=== PATIENT | male | born 1960 | race Caucasian/White ===

== ENCOUNTER 2018-05-13 09:21 | Day surgery (SDC) | payer MEDICARE ==
[2018-05-13] MEDS: NS 1,000 ML IV (10:14)
[2018-05-13] MEDS ORDERED: PROPOFOL 200 MG/20 ML VIAL As Ordered ×2 (11:10)
[2018-05-13] MEDS ORDERED: LIDOCAINE 2% INJ 100 MG/5 ML SDV (FOR ANES.) As Ordered (11:10)
== END 2018-05-13 11:52 | disposition home or self-care (01) ==
LOC: M OPP 09:21
DX: Z12.11 Encounter for screening for malignant neoplasm of colon (principal); Z83.71 Family history of colonic polyps; K57.30 Diverticulosis of large intestine without perforation or abscess without bleeding; I10 Essential (primary) hypertension; I25.10 Atherosclerotic heart disease of native coronary artery without angina pectoris; E11.9 Type 2 diabetes mellitus without complications; K21.9 Gastro-esophageal reflux disease without esophagitis; M54.9 Dorsalgia, unspecified; G47.30 Sleep apnea, unspecified; E66.9 Obesity, unspecified; Z87.891 Personal history of nicotine dependence; Z79.82 Long term (current) use of aspirin; Z79.84 Long term (current) use of oral hypoglycemic drugs; Z79.899 Other long term (current) drug therapy
CPT/HCPCS: G0105

== ENCOUNTER → 2019-03-23 | Outpatient (CLI) | payer MEDICARE, OTHER ==
[~2019-03-23] MED LIST: ASPI81TA26 PO; IBUP-359; LANS30CA; LOSA50TA88; METF500T4
[2019-03-23 10:51] LABS: BASO % 0.7 % (0.0-1.0); EOS # 0.1 10^3/uL (0.0-0.50); HEMATOCRIT 46.3 % (42.0-52.0); HEMOGLOBIN 15.3 g/dl (13.5-17.5); LYMPH % 43.4 % (24.0-44.0); MEAN CORPUSCULAR HEMOGLOBIN 29.1 pg (27.0-33.0); MONO # 0.4 10^3/uL (0.0-0.8); MONO % 8.3 % (0.0-5.0); NEUTROPHILS # 2.1 10^3/uL (1.8-7.7); NEUTROPHILS % 45.4 % (36.0-66.0); PLATELET COUNT, AUTOMATED 161 10^3/uL (150-450); RED BLOOD COUNT 5.26 10^6/uL (4.30-6.10); WHITE BLOOD COUNT 4.6 10^3/uL (4.0-10.0)
[2019-03-23 11:14] LABS: BLOOD UREA NITROGEN 14 MG/DL (7-18); CALCIUM LEVEL 8.9 MG/DL (8.8-10.2); CARBON DIOXIDE LEVEL 28 MEQ/L (21-32); CHLORIDE LEVEL 104 MEQ/L (98-107); CREATININE FOR GFR 1.18 MG/DL (0.70-1.30); GLOMERULAR FILTRATION RATE > 60.0 (>49); GLUCOSE, FASTING 129 MG/DL (70-100); POTASSIUM SERUM 4.1 MEQ/L (3.5-5.1); SODIUM LEVEL 138 MEQ/L (136-145)
== END ==
LOC: M LAB 09:56
PROVIDERS: ATTEND Family Medicine
DX: I11.9 Hypertensive heart disease without heart failure (principal); E11.9 Type 2 diabetes mellitus without complications; N20.0 Calculus of kidney; G47.33 Obstructive sleep apnea (adult) (pediatric); K21.0 Gastro-esophageal reflux disease with esophagitis

== ENCOUNTER → 2019-03-23 | Outpatient (CLI) | payer MEDICARE, OTHER ==
[2019-03-23 10:51] LABS: HEMATOCRIT 46.1 % (42.0-52.0); HEMOGLOBIN 15.2 g/dl (13.5-17.5); MEAN CORPUSCULAR HEMOGLOBIN 28.7 pg (27.0-33.0); MEAN CORPUSCULAR VOLUME 87.1 fl (80.0-96.0); PLATELET COUNT, AUTOMATED 160 10^3/uL (150-450); RED BLOOD COUNT 5.29 10^6/uL (4.30-6.10); WHITE BLOOD COUNT 4.7 10^3/uL (4.0-10.0)
[2019-03-23 10:52] LABS: APPEARANCE, URINE CLEAR (CLEAR); BACTERIA, URINE AUTO NEGATIVE (NEGATIVE); BILIRUBIN, URINE AUTO NEGATIVE (NEGATIVE); BLOOD, URINE BLOOD NEGATIVE (NEGATIVE); COLOR, URINE YELLOW (YELLOW); GLUCOSE, URINE (UA) AUTO 1+ mg/dL (NEGATIVE); KETONE, URINE AUTO NEGATIVE (NEGATIVE); LEUKOCYTE ESTERASE, URINE AUTO NEGATIVE (NEGATIVE); NITRITE, URINE AUTO NEGATIVE (NEGATIVE); PROTEIN, URINE AUTO NEGATIVE (NEGATIVE); RBC, URINE AUTO 0 /HPF (0-3); SPECIFIC GRAVITY URINE AUTO 1.004 (1.002-1.035); SQUAMOUS EPITHELIAL CELL UR AU 0 /HPF (0-6); UROBILINOGEN, URINE AUTO 0.2 mg/dL (0.0-2.0); WBC, URINE AUTO 4 /HPF (0-3)
[2019-03-23 11:06] LABS: INR 0.97
[2019-03-23 11:07] LABS: PARTIAL THROMBOPLASTIN TIME 29.4 SECONDS (25.4-37.6)
[2019-03-23 11:21] LABS: BLOOD UREA NITROGEN 14 MG/DL (7-18); CALCIUM LEVEL 9.2 MG/DL (8.8-10.2); CARBON DIOXIDE LEVEL 28 MEQ/L (21-32); CHLORIDE LEVEL 105 MEQ/L (98-107); CREATININE FOR GFR 1.15 MG/DL (0.70-1.30); GLOMERULAR FILTRATION RATE > 60.0 (>49); GLUCOSE, FASTING 133 MG/DL (70-100); POTASSIUM SERUM 4.2 MEQ/L (3.5-5.1); SODIUM LEVEL 139 MEQ/L (136-145)
--- NOTE | 2019-03-23 19:50 | ECGEPIP ---
Stationary ECG Study [facility] Test Date: 2019-03-23 Pat Name: ALEXANDRO NEWBERRY Department: Room: - Gender: M Director Of Accounting: RF : 1960 Requested By: Eduardo SALINAS Order Number: [id number] Reading MD: Leeroy Dong Measurements Intervals [place] Rate: 63 P: -42 MD: 98 QRS: -8 QRSD: 100 T: 47 QT: 396 QTc: 407 Interpretive Statements Normal sinus rhythm Short MD interval Nonspecific T wave abnormality No significant change when compared to prior tracing of 02/08/2015 Electronically Signed On 03-23-2019 19:50:12 EDT by Leeroy Dong
--- NOTE | 2019-03-24 01:33 | REP ---
Clinical: Preoperative assessment . Comparison: 02/08/2015 . Technique: PA and lateral. Findings: The mediastinum and cardiac silhouette are normal. Airway is patent and midline. The lung collins are clear and without acute consolidation, effusion, or pneumothorax. The skeletal structures are intact and normal. Impression: 1. No acute cardiopulmonary process. Electronically Signed by Jeff Cramer MD 03/24/2019 01:25 A
== END ==
LOC: M LAB 09:50
PROVIDERS: ATTEND Nurse Practitioner Family
DX: Z01.818 Encounter for other preprocedural examination (principal); N20.0 Calculus of kidney; I11.9 Hypertensive heart disease without heart failure; E11.9 Type 2 diabetes mellitus without complications; G47.33 Obstructive sleep apnea (adult) (pediatric); K21.0 Gastro-esophageal reflux disease with esophagitis

== ENCOUNTER 2019-03-31 13:47 | Day surgery (SDC) | payer MEDICARE ==
[~2019-03-31] VITALS: Ht 188 cm; Wt 113.9 kg
[~2019-03-31 13:47] MED LIST changes: -IBUP-359; +IBUP-359 PO; -LANS30CA; +LANS30CA PO; -LOSA50TA88; +LOSA50TA88 PO; +LR 1,000 ML IV ONE; -METF500T4; +METF500T4 PO
[2019-03-31] MEDS ORDERED: PROPOFOL 200 MG/20 ML VIAL As Ordered ONE (15:34)
[2019-03-31] MEDS ORDERED: fentaNYL 250 MCG/5 ML INJECTION (J3010) As Ordered ONE (15:34)
[2019-03-31] MEDS ORDERED: LIDOCAINE 2% INJ 100 MG/5 ML SDV (FOR ANES.) As Ordered ONE (15:34)
[2019-03-31] MEDS ORDERED: MIDAZOLAM INJ 2 MG/2 ML VIAL (J2250) As Ordered ONE (15:35)
[2019-03-31] MEDS ORDERED: NEOSTIGMINE 10 MG/10 ML VIAL (J2710) As Ordered ONE (15:58)
[2019-03-31] MEDS ORDERED: CONRAY-60 60% 50ML VIAL (Q9961) As Ordered ONE (16:28)
[2019-03-31] MEDS ORDERED: dexameTHASONE 4 MG/ML 1ML VIAL (J1100) As Ordered ONE (17:06)
[2019-03-31] MEDS ORDERED: ONDANSETRON 4MG/2ML VIAL (J2405) As Ordered ONE (17:06)
[2019-03-31] MEDS ORDERED: KETOROLAC 60 MG/2 ML VIAL (J1885) As Ordered ONE (17:41)
[2019-03-31] MEDS ORDERED: PERCOCET 5MG/325MG TAB PO PRN ×2 (18:30)
[2019-03-31] MEDS ORDERED: NORCO, ANEXSIA 5/325MG TABLET (HYDROcodone/ACETAMINOPHEN) PO PRN (18:30)
[2019-03-31] MEDS ORDERED: fentaNYL 100 MCG/2 ML INJECTION (J3010) IV PRN (18:30)
--- NOTE | 2019-03-31 18:32 | REP ---
C-ARM VIEWS DURING RETROGRADE PYELOGRAM AND RIGHT URETERAL STENT PLACEMENT: Three C-Arm views are performed. Injection of contrast into the right ureter partially opacifies the dilated right pelvicaliceal system. A right ureteral stent is placed with the proximal end coiled in the right renal pelvis and the distal end coiled in the region of the urinary bladder. 22 seconds fluoroscopy time was utilized. Electronically Signed by Tesfaye Ferrer MD 03/31/2019 06:52 P
[2019-03-31 18:50] VITALS: BP 140/93
--- NOTE | 2019-04-01 09:04 | RO ---
DATE OF PROCEDURE: 03/31/2019 PREPROCEDURE DIAGNOSIS: Right ureteral stone. POSTPROCEDURE DIAGNOSIS: Right ureteral stone. PROCEDURE: Cystoscopy, right ureteroscopy laser lithotripsy and basket extraction of stones, right retrograde pyelogram with intraoperative interpreted images, right ureteral stent placement. SURGEON: Julio Bryant MD BUSINESS EMPLOYMENT SPECIALIST: None. ANESTHESIA: General. OPERATIVE INDICATIONS: This is a 59-year-old male with a 1.2 cm obstructing distal right ureteral stone. He was brought to the operating room for treatment. DESCRIPTION OF PROCEDURE: The patient was brought to the operating room and general anesthesia was induced. Prophylactic antibiotics were infused. He was then placed in dorsal lithotomy position, prepped and draped in the usual sterile fashion. A rigid cystoscope was then inserted into the urethral meatus and advanced to the bladder. Once inside the bladder, a guidewire was advanced up the right collecting system. I then went up the right collecting system with a short semi-rigid ureteroscope and in the distal ureter a 1.2 cm stone was seen. It was impacted in the ureter. I then utilized the 200 micron laser fiber and fragmented the stone in several smaller pieces and then removed pieces using a basket. Of note, there was moderate trauma to the ureter due to the impacted stone. Once all the fragments were removed, I examined the proximal ureter and no additional stone fragments were seen. A retrograde pyelogram was the pyelogram and was notable for moderate-severe right hydronephrosis and no extravasation. The ureteroscope was then withdrawn and once again, no large stones were seen in the ureter. Only very tiny stone fragments were seen. Once the ureteroscope was removed, the wire was utilized to advance a 6-Romanian x 22-32 cm JJ ureteral stent up the right collecting system. The wire was then removed, and there were adequate curls of the stent in the right renal pelvis and in the bladder. The bladder was emptied of all fluid, and this marked the conclusion of the procedure. The patient was then taken out of the dorsal lithotomy position, awakened from anesthesia and transported to recovery room in stable condition. ESTIMATED BLOOD LOSS: 5 mL. COMPLICATIONS: None. SPECIMENS: Kidney stone fragments. PLAN: I will keep the patient's stent in place for approximately 3-4 weeks considering the trauma caused by the impacted stone. Will then remove that in the office. [facility] CENTERArcadio
[2019-04-07 00:06] LABS: CA Oxalate Dihy 50 % (.); COMMENT Note: (.); Ca Ox Monohydrate 40 % (.)
== END 2019-03-31 19:05 | disposition home or self-care (01) ==
LOC: M SDC 13:47
PROVIDERS: ATTEND Urology
DX: N20.1 Calculus of ureter (principal); N20.0 Calculus of kidney; I10 Essential (primary) hypertension; E11.9 Type 2 diabetes mellitus without complications; K21.9 Gastro-esophageal reflux disease without esophagitis; Z87.891 Personal history of nicotine dependence; G47.30 Sleep apnea, unspecified; Z79.84 Long term (current) use of oral hypoglycemic drugs; Z79.82 Long term (current) use of aspirin
CPT/HCPCS: 52356; 74420; 82360; 88300; C1769; C1894; C2617; J0690; J1100; J1885; J2250; J2405; J3010; Q9961

== ENCOUNTER → 2019-07-22 | Outpatient (REF) | payer MEDICARE ==
[~2019-07-22] MED LIST changes: -LR 1,000 ML IV ONE; +METF-791 PO; -METF500T4 PO
[2019-07-22 18:10] LABS: APPEARANCE, URINE CLEAR (CLEAR); BACTERIA, URINE AUTO NEGATIVE (NEGATIVE); BILIRUBIN, URINE AUTO NEGATIVE (NEGATIVE); BLOOD, URINE BLOOD NEGATIVE (NEGATIVE); COLOR, URINE YELLOW (YELLOW); GLUCOSE, URINE (UA) AUTO NEGATIVE (NEGATIVE); KETONE, URINE AUTO NEGATIVE (NEGATIVE); LEUKOCYTE ESTERASE, URINE AUTO NEGATIVE (NEGATIVE); MUCUS, URINE SMALL (NEGATIVE); NITRITE, URINE AUTO NEGATIVE (NEGATIVE); PROTEIN, URINE AUTO NEGATIVE (NEGATIVE); RBC, URINE AUTO 1 /HPF (0-3); SPECIFIC GRAVITY URINE AUTO 1.019 (1.002-1.035); SQUAMOUS EPITHELIAL CELL UR AU 0 /HPF (0-6); WBC, URINE AUTO 1 /HPF (0-3)
== END ==
LOC: M SMT 16:57
PROVIDERS: ATTEND Nurse Practitioner Family
DX: R10.9 Unspecified abdominal pain (principal)
CPT/HCPCS: 81001; 87086; G0463

== ENCOUNTER → 2019-07-28 | Outpatient (CLI) | payer MEDICARE ==
--- NOTE | 2019-07-28 08:36 | REP ---
Clinical: Left flank pain. Technique: Axial noncontrast images from the lung bases to the pubic symphysis with coronal and sagittal re-formations. Comparison: Findings: Mild/moderate and relatively symmetric perinephric stranding suggests chronic changes. The right kidney demonstrates a very subtle asymmetric fullness to the collecting system and there is suggestion for a 2 mm calculus in the distal right ureter (image 112). The left kidney includes 2 mm nonobstructing lower pole calculus without hydroureternephrosis or obstructing calculus. The bladder is partially collapsed but grossly normal in appearance. Fatty infiltration to the liver. Spleen, pancreas, gallbladder, and bilateral adrenal glands are normal for noncontrast evaluation. The enteric system is without obstruction or acute inflammatory process. Normal terminal ileum, cecum and appendix identified in the right lower quadrant. Sigmoid diverticulosis noted without acute diverticulitis. Pelvis demonstrates partially collapsed normal bladder and mildly prominent prostate gland with 3 mm calcification to the left of midline. No ascites. No free air. No adenopathy. Atherosclerotic changes to the aorta and vasculature without aneurysm. Musculoskeletal structures demonstrate degenerative changes without abnormality. Lung bases are clear. Impression: 1. No prior examination is currently available for comparison. 2. Findings suggest very subtle right-sided obstructive uropathy with a 2 mm calculus in the distal right ureter. 2 mm nonobstructing calculus in the lower pole left kidney noted. 3. Sigmoid diverticula without acute diverticulitis. Electronically Signed by Jeff Cramer MD 07/28/2019 08:28 A
== END ==
LOC: M RAD 08:02
PROVIDERS: ATTEND Nurse Practitioner Family
DX: R10.32 Left lower quadrant pain (principal); N20.1 Calculus of ureter; K76.0 Fatty (change of) liver, not elsewhere classified; N13.30 Unspecified hydronephrosis; K57.30 Diverticulosis of large intestine without perforation or abscess without bleeding; N20.0 Calculus of kidney

== ENCOUNTER → 2019-08-26 | Outpatient (CLI) | payer MEDICARE ==
--- NOTE | 2019-08-26 12:46 | REP ---
REASON FOR EXAM: History of renal calculi. Dedicated urinary bladder ultrasonography was performed. Color Doppler imaging of the ureterovesical junction shows Uro-Jet phenomena bilaterally. The pre-void urinary bladder volume calculation based on measurements of 7.6 x 6.9 x 5.3 cm is 181.5 mL on the postvoid urinary bladder volume calculation is 71.3 mL. This renders a 39% postvoid residual. Low level echoes were seen in the dependent portion of the urinary bladder consistent with a small amount of debris. No echogenic foci which casts acoustic shadows were present. No masses were identified on this limited transvesical exam. Mucosal irregularities cannot be ruled out. IMPRESSION: Findings as described above. Electronically Signed by Lincoln Lopez DO 08/26/2019 02:06 P
--- NOTE | 2019-08-26 14:14 | REP ---
RENAL ULTRASOUND: Real-time sonographic evaluation of the kidneys performed. Kidneys are normal in size and echotexture, right kidney measuring 10.9 x 6.8 x 4.7 cm and left kidney 10.9 x 5.6 x 5.6 cm. There is no hydronephrosis or nephrolithiasis seen bilaterally. No renal mass is seen. IMPRESSION: Negative renal ultrasound. Electronically Signed by Tesfaye Ferrer MD 08/29/2019 02:56 P
== END ==
LOC: M RAD 07:27
PROVIDERS: ATTEND Nurse Practitioner Family
DX: N20.0 Calculus of kidney (principal)

== ENCOUNTER → 2019-12-01 | Outpatient (REF) | payer OTHER, MEDICARE ==
[2019-12-01 13:14] LABS: PLATELET COUNT, AUTOMATED 195 10^3/uL (150-450)
[2019-12-01 13:23] LABS: INR 1.03; PROTHROMBIN TIME 13.2 SECONDS (11.8-14.0)
[2019-12-01 13:24] LABS: PARTIAL THROMBOPLASTIN TIME 29.9 SECONDS (25.0-38.4)
== END ==
LOC: M LABDRAW1 12:23
PROVIDERS: ATTEND Physician Assistant
DX: Z01.812 Encounter for preprocedural laboratory examination (principal); M47.817 Spondylosis without myelopathy or radiculopathy, lumbosacral region

== ENCOUNTER → 2020-05-08 | Outpatient (CLI) | payer OTHER, MEDICARE ==
[~2020-05-08] MED LIST changes: -METF-791 PO; +METF-838 PO
== END ==
LOC: M LABSMTC 09:30
PROVIDERS: ATTEND Physical Medicine & Rehabilitation
DX: Z11.59 Encounter for screening for other viral diseases (principal)

== ENCOUNTER → 2020-05-16 | Outpatient (REF) | payer MEDICARE | LOC: M LAB REF 17:49 | PROVIDERS: ATTEND Dermatology | DX: D03.59 Melanoma in situ of other part of trunk (principal); L90.5 Scar conditions and fibrosis of skin ==

== ENCOUNTER → 2020-06-29 | Outpatient (CLI) | payer OTHER, MEDICARE ==
--- NOTE | 2020-08-16 11:04 | ECGEPIP ---
[facility] Test Date: 2020-06-29 Pat Name: ALEXANDRO NEWBERRY Department: Room: - Gender: Male Airborne And Air Delivery Specialist: HEATHER : 1960 Requested By: Christofer Mcknight Order Number: [id number] Reading MD: Leeroy Dong Measurements Intervals [place] Rate: 70 P: 85 DE: 142 QRS: -12 QRSD: 102 T: 56 QT: 408 QTc: 442 Interpretive Statements NORMAL SINUS RHYTHM NORMAL EKG NO PRIOR TRACING AVAILABLE SEE SCANNED DOWNTIME REPORT
--- NOTE | 2020-08-20 08:29 | REP ---
PREOPERATIVE TWO-VIEW CHEST HISTORY: Right knee arthritis. COMPARISON: 03/23/2019. FINDINGS: There is no acute infiltrate. Heart is upper limits of normal in size. Mediastinal silhouette was unchanged. There were mild degenerative changes of the spine. IMPRESSION: No active pulmonary disease. MTDD
== END ==
LOC: M LAB 15:00
PROVIDERS: ATTEND Orthopaedic Surgery
DX: Z01.818 Encounter for other preprocedural examination (principal)

== ENCOUNTER → 2020-06-29 | Outpatient (CLI) | payer OTHER, MEDICARE ==
[2020-08-15 03:06] LABS: BLOOD UREA NITROGEN 14 MG/DL (7-18); CREATININE FOR GFR 1.11 MG/DL (0.70-1.30); GLOMERULAR FILTRATION RATE > 60.0 (>49)
== END ==
LOC: M LAB 14:40
PROVIDERS: ATTEND Physical Medicine & Rehabilitation
DX: M47.817 Spondylosis without myelopathy or radiculopathy, lumbosacral region (principal)

== ENCOUNTER → 2020-07-03 | Outpatient (CLI) | payer OTHER, MEDICARE ==
[2020-08-05 10:53] LABS: HEMATOCRIT 43.6 % (42.0-52.0); HEMOGLOBIN 14.4 g/dl (13.5-17.5); MEAN CORPUSCULAR HEMOGLOBIN 29.9 pg (27.0-33.0); MEAN CORPUSCULAR VOLUME 90.5 fl (80.0-96.0); PLATELET COUNT, AUTOMATED 190 10^3/uL (150-450); RED BLOOD COUNT 4.82 10^6/uL (4.30-6.10); WHITE BLOOD COUNT 5.4 10^3/uL (4.0-10.0)
[2020-08-05 10:54] LABS: ERYTHROCYTE SEDIMENTATION RATE 3 mm/hr (0-20); INR 1.03; PROTHROMBIN TIME 13.7 SECONDS (11.8-14.0)
[2020-08-18 06:14] LABS: ALBUMIN 3.9 GM/DL (3.2-5.2); ALT/SGPT 54 U/L (12-78); BILIRUBIN,TOTAL 0.7 MG/DL (0.2-1.0); BLOOD UREA NITROGEN 12 MG/DL (7-18); CALCIUM LEVEL 8.9 MG/DL (8.8-10.2); CARBON DIOXIDE LEVEL 30 MEQ/L (21-32); CHLORIDE LEVEL 105 MEQ/L (98-107); CREATININE FOR GFR 1.13 MG/DL (0.70-1.30); GLOMERULAR FILTRATION RATE > 60.0 (>49); GLUCOSE, FASTING 122 MG/DL (70-100); POTASSIUM SERUM 4.4 MEQ/L (3.5-5.1); SODIUM LEVEL 138 MEQ/L (136-145); TOTAL PROTEIN 7.1 GM/DL (6.4-8.2)
== END ==
LOC: M LAB 14:22
PROVIDERS: ATTEND Orthopaedic Surgery
DX: Z01.818 Encounter for other preprocedural examination (principal); M17.11 Unilateral primary osteoarthritis, right knee

== ENCOUNTER 2020-07-06 10:10 | Inpatient (IN) | payer OTHER, MEDICARE ==
[~2020-07-06 10:10] MED LIST changes: +BUPIVACAINE LIPOSOME/PF 1.3% 20ML VIAL (13.3MG/ML)(EXPAREL)(C9290 PER1MG) As Ordered ONE; +EPINEPHrine INJ 1 MG/ML 1ML AMP As Ordered ONE; +LIDOCAINE 1% MDV 20ML VIAL ONE; +MIDAZOLAM INJ 2MG/2ML VIAL (J2250 PER 1MG) As Ordered ONE; +MIDAZOLAM INJ 2MG/2ML VIAL (J2250 PER 1MG) ONE; +ROPIvacaine 0.5% 30ML INJECTION (J2795 PER 1MG) ONE; +TRANEXAMIC ACID 100 MG/ML 10ML VIAL As Ordered ONE; +ceFAZolin 1GM VIAL (J0690 PER 500MG) As Ordered ONE; +ceFAZolin 2 GM/D5W 50 ML IV BAG (J0690 PER 500MG) As Ordered ONE; +ceFAZolin 2 GM/D5W 50 ML IV BAG (J0690 PER 500MG) ONE; +fentaNYL 100 MCG/2 ML INJECTION (J3010) As Ordered ONE; +fentaNYL 100 MCG/2 ML INJECTION (J3010) ONE
[2020-07-06] MEDS ORDERED: fentaNYL 100 MCG/2 ML INJECTION (J3010) As Ordered ONE (10:54)
[2020-07-06] MEDS ORDERED: LIDOCAINE 2% 100MG/5ML SDV (FOR ANES.) As Ordered ONE (10:54)
[2020-07-06] MEDS ORDERED: ONDANSETRON 4MG/2ML VIAL As Ordered ONE ×2 (10:54→13:06)
[2020-07-06] MEDS ORDERED: MIDAZOLAM INJ 2MG/2ML VIAL (J2250 PER 1MG) As Ordered ONE (10:54)
[2020-07-06] MEDS ORDERED: propofoL 200 MG/20 ML VIAL As Ordered ONE (10:54)
[2020-07-06] MEDS ORDERED: ACETAMINOPHEN 1000MG 100ML IV BTL (OFIRMEV) (J0131 PER 10MG) As Ordered ONE (10:58)
[2020-07-06] MEDS ORDERED: diphenhydrAMINE 50MG/ML VIAL (J1200) As Ordered ONE (11:22)
[2020-07-06] MEDS ORDERED: KETAMINE HCL 200 MG/20 ML VIAL As Ordered ONE (11:47)
[2020-07-06] MEDS ORDERED: ONDANSETRON 4MG/2ML VIAL ONE (13:05)
[2020-07-06] MEDS ORDERED: MEPERIDINE INJ 25 MG/ML VIAL (J2175) ONE (13:05)
[2020-07-06] MEDS ORDERED: MEPERIDINE INJ 25 MG/ML VIAL (J2175) As Ordered ONE (13:05)
[2020-07-06] MEDS ORDERED: PERCOCET 5MG/325MG TAB ONE ×3 (13:42→22:53)
[2020-07-06] MEDS ORDERED: PERCOCET 5MG/325MG TAB As Ordered ONE ×3 (13:42→22:53)
[2020-07-06] MEDS ORDERED: MORPHINE 4 MG/ML 1ML VIAL/SYRINGE (J2270) ONE ×2 (16:11→21:16)
[2020-07-06] MEDS ORDERED: MORPHINE 4 MG/ML 1ML VIAL/SYRINGE (J2270) As Ordered ONE ×2 (16:11→21:16)
[2020-07-06] MEDS ORDERED: ceFAZolin 1GM VIAL (J0690 PER 500MG) ONE (18:02)
[2020-07-06] MEDS ORDERED: ceFAZolin 1GM VIAL (J0690 PER 500MG) As Ordered ONE (18:02)
[2020-07-06] MEDS ORDERED: GABAPENTIN 300 MG CAP ONE (21:16)
[2020-07-06] MEDS ORDERED: GABAPENTIN 300 MG CAP As Ordered ONE (21:16)
[2020-07-07] MEDS ORDERED: ceFAZolin 2 GM/D5W 50 ML IV BAG (J0690 PER 500MG) ONE (02:07)
[2020-07-07] MEDS ORDERED: MORPHINE 2 MG/ML 1ML VIAL (J2270) ONE (02:07)
[2020-07-07] MEDS ORDERED: MORPHINE 2 MG/ML 1ML VIAL (J2270) As Ordered ONE (02:07)
[2020-07-07] MEDS ORDERED: ceFAZolin 2 GM/D5W 50 ML IV BAG (J0690 PER 500MG) As Ordered ONE (02:07)
[2020-07-07] MEDS ORDERED: PERCOCET 5MG/325MG TAB ONE (05:01)
[2020-07-07] MEDS ORDERED: PERCOCET 5MG/325MG TAB As Ordered ONE ×3 (05:01→19:36)
[2020-07-07] MEDS ORDERED: GABAPENTIN 300 MG CAP As Ordered ONE ×3 (08:48→21:43)
[2020-07-07] MEDS ORDERED: MIRALAX *UNIT DOSE* 17GM PACKET As Ordered ONE (08:48)
[2020-07-07] MEDS ORDERED: LOSARTAN 25 MG TAB As Ordered ONE (08:48)
[2020-07-07] MEDS ORDERED: MORPHINE 15 MG SA TAB As Ordered ONE (08:49)
[2020-07-07] MEDS ORDERED: HumaLOG INSULIN (NovoLOG) PER UNIT As Ordered ONE ×3 (08:49→17:29)
[2020-07-07] MEDS ORDERED: diphenhydrAMINE 25MG CAP As Ordered ONE (10:31)
[2020-07-07] MEDS ORDERED: KETOROLAC 30 MG/ML 1ML VIAL As Ordered ONE (12:09)
[2020-07-07] MEDS ORDERED: RIVAROXABAN 10 MG TAB (XARELTO) As Ordered ONE (17:29)
[2020-07-08] MEDS ORDERED: PERCOCET 5MG/325MG TAB As Ordered ONE ×2 (06:20→10:30)
[2020-07-08] MEDS ORDERED: HumaLOG INSULIN (NovoLOG) PER UNIT As Ordered ONE (09:36)
[2020-07-08] MEDS ORDERED: MIRALAX *UNIT DOSE* 17GM PACKET As Ordered ONE (09:37)
[2020-07-08] MEDS ORDERED: LOSARTAN 25 MG TAB As Ordered ONE (09:37)
[2020-07-08] MEDS ORDERED: GABAPENTIN 300 MG CAP As Ordered ONE (09:37)
--- NOTE | 2020-08-30 10:27 | RO ---
Date of Operation: July 06, 2020 Pre-op diagnosis: Right knee osteoarthritis. Post-op diagnosis: Right knee osteoarthritis. Procedure: Right total knee arthroplasty using an ATTUNE rotating platform, size 6 femur, size 8 tibial tray, 8 polyethylene, 38 patellar button. SURGEON: Christofer Mcknight M.D. UNISHEAR OPERATOR: Margaret More ANESTHESIA: Spinal. ESTIMATED BLOOD LOSS: 50. COMPLICATIONS: None. INDICATIONS: This is a 60-year-old gentleman who has had some persistent right knee pain with fairly advanced arthritis. He had failed conservative management and wished to go ahead with surgical treatment. He understood the nature and the risks associated with this. PROCEDURE: The patient was taken to the operating room and placed in the supine position after spinal anesthesia was induced. The right lower extremity was prepped and draped in the usual sterile fashion. A timeout was performed, tourniquet was inflated, and a longitudinal incision was made over the anterior aspect of the knee. I then did a medial parapatellar arthrotomy, everted the patella, flexed the knee up, and removed any osteophytes. I then used a canal initiating reamer on the femoral side, followed by the intramedullary guides set at 5 of valgus and a 9-mm cut. This was pinned in place. The distal femoral cut was made, but I did dial the block back two more millimeters, because he had a mild flexion contracture. I then sized the femur to be a 6 and the distal drill holes were placed in the femur with the external rotation dialed in. The cutting block was secured. The remaining four cuts were made in the usual fashion, protecting soft tissues at all times. I then prepared the tibia. The tibial retractors were placed and the tibial alignment guide was then secured at 4-mm off of the low side and the appropriate amount of valgus and posterior slope. This was pinned into place and the proximal tibia cut was made after checking the external alignment. I was pleased with the resection and removed any remaining osteophytes from around the tibia and femur. I then used a ict business analyst to remove soft tissue and osteophytes from either side of the knee. The spacers were then used for trial and it looked as though it would be between an 8 and a 10 spacer. This showed excellent balance in flexion and extension. I then prepared the sulcus cut on the femur with the guide and made this cut and then I prepared the tibia. A size 8 tray fit very nicely. This was secured in place, drilled, broached. The trial components were then placed and the femoral component fit very nicely, as did the tibial tray. I put in the trial polyethylene and elected to go with a size 8, which had excellent alignment and balance in flexion and extension. I then free-hand cut the patella, removing about 7 or 8-mm of bone and then sized it to be a 38. The drill holes were placed on the patella. The drill holes were placed at the end of the femur. The patella tracked very nicely. The financial sales assistant prepared the bone cement in the modern technique. I removed the trial components, irrigated copiously, and placed the Exparel in the deep tissues. Once the surfaces were copiously irrigated and dried, I cemented in the components, removing excess bone cement. The polyethylene had been inserted, cemented on the patella, removed all excess bone cement. The knee was brought in some extension. The TXA was placed after copious irrigation. Then, once the cement hardened, I removed the patellar clamp and closed the deep layer with interrupted #1 Vicryl suture, doing one final deep irrigation, and running Stratafix suture which obtained a water-tight closure. I put the knee through a range of motion. The patella was tracking quite nicely and the repair was solid. I irrigated and deflated the tourniquet once the cement was hard. I closed the subcutaneous with 2-0 Vicryl and the skin was sergey. Sterile dressings were applied. The patient was taken to the recovery room in stable condition. COMPLICATIONS: There were no known complications. PLAN: The plan will be routine postoperative. The financial sales assistant was instrumental in holding the retractors, mixing the bone cement, and assisting in wound closure. JOHNNA
--- NOTE | 2020-08-31 13:07 | IPN ---
DATE: 07/06/2020 Patient seen and examined. He wishes to go ahead with a right total knee arthroplasty. He is aware of the nature and the risks of bleeding, infection, damage to nerves, vessels, persistent pain, wear, loosening, blood clots, medical problems, , among others. Preoperative clearance was obtained. We plan on doing a right total knee arthroplasty. JOHNNA
[2020-09-02 18:14] LABS: HEMATOCRIT 42.8 % (42.0-52.0); HEMOGLOBIN 14.6 g/dl (13.5-17.5); MEAN CORPUSCULAR HGB CONC 34.1 g/dl (32.0-36.5); MEAN CORPUSCULAR VOLUME 88.1 fl (80.0-96.0); PLATELET COUNT, AUTOMATED 188 10^3/uL (150-450); RED BLOOD COUNT 4.86 10^6/uL (4.30-6.10); WHITE BLOOD COUNT 10.6 10^3/uL (4.0-10.0)
[2020-09-17 15:19] LABS: HEMATOCRIT 42.8 % (42.0-52.0); HEMOGLOBIN 14.3 g/dl (13.5-17.5); MEAN CORPUSCULAR HEMOGLOBIN 30.1 pg (27.0-33.0); MEAN CORPUSCULAR HGB CONC 33.4 g/dl (32.0-36.5); MEAN CORPUSCULAR VOLUME 90.1 fl (80.0-96.0); PLATELET COUNT, AUTOMATED 173 10^3/uL (150-450); RED BLOOD COUNT 4.75 10^6/uL (4.30-6.10); WHITE BLOOD COUNT 10.5 10^3/uL (4.0-10.0)
[2020-09-30 11:12] LABS: BLOOD UREA NITROGEN 12 MG/DL (7-18); CALCIUM LEVEL 8.7 MG/DL (8.8-10.2); CARBON DIOXIDE LEVEL 27 MEQ/L (21-32); CHLORIDE LEVEL 105 MEQ/L (98-107); CREATININE FOR GFR 1.11 MG/DL (0.70-1.30); GLOMERULAR FILTRATION RATE > 60.0 (>49); GLUCOSE, FASTING 128 MG/DL (70-100); POTASSIUM SERUM 4.1 MEQ/L (3.5-5.1); SODIUM LEVEL 137 MEQ/L (136-145)
== END 2020-07-07 07:00 | disposition home or self-care (01) | DRG 302 ==
LOC: M MS5PR 10:10
PROVIDERS: ADMIT Orthopaedic Surgery; ATTEND Orthopaedic Surgery
PROC: 0SRC0J9 Replacement of Right Knee Joint with Synthetic Substitute, Cemented, Open Approach (ICD-10-PCS; principal; 2020-07-06)
DX: M17.11 Unilateral primary osteoarthritis, right knee (principal); E11.9 Type 2 diabetes mellitus without complications; Z87.891 Personal history of nicotine dependence; K21.9 Gastro-esophageal reflux disease without esophagitis; Z79.82 Long term (current) use of aspirin; Z79.899 Other long term (current) drug therapy; E78.5 Hyperlipidemia, unspecified

== ENCOUNTER → 2020-07-31 | Outpatient (CLI) | payer OTHER ==
[~2020-07-31] MED LIST changes: -BUPIVACAINE LIPOSOME/PF 1.3% 20ML VIAL (13.3MG/ML)(EXPAREL)(C9290 PER1MG) As Ordered ONE; -EPINEPHrine INJ 1 MG/ML 1ML AMP As Ordered ONE; -LIDOCAINE 1% MDV 20ML VIAL ONE; -MIDAZOLAM INJ 2MG/2ML VIAL (J2250 PER 1MG) As Ordered ONE; -MIDAZOLAM INJ 2MG/2ML VIAL (J2250 PER 1MG) ONE; -ROPIvacaine 0.5% 30ML INJECTION (J2795 PER 1MG) ONE; -TRANEXAMIC ACID 100 MG/ML 10ML VIAL As Ordered ONE; -ceFAZolin 1GM VIAL (J0690 PER 500MG) As Ordered ONE; -ceFAZolin 2 GM/D5W 50 ML IV BAG (J0690 PER 500MG) As Ordered ONE; -ceFAZolin 2 GM/D5W 50 ML IV BAG (J0690 PER 500MG) ONE; -fentaNYL 100 MCG/2 ML INJECTION (J3010) As Ordered ONE; -fentaNYL 100 MCG/2 ML INJECTION (J3010) ONE
[2020-07-31 14:57] LABS: BLOOD UREA NITROGEN 14 MG/DL (7-18); CREATININE FOR GFR 0.99 MG/DL (0.70-1.30); GLOMERULAR FILTRATION RATE > 60.0 (>49)
== END ==
LOC: M LAB 13:10
PROVIDERS: ATTEND Physician Assistant
DX: M47.817 Spondylosis without myelopathy or radiculopathy, lumbosacral region (principal)

== ENCOUNTER → 2020-10-09 | Outpatient (CLI) | payer MEDICARE, OTHER | LOC: M WUC 11:11 | PROVIDERS: ATTEND Dermatology | DX: L82.1 Other seborrheic keratosis (principal) | CPT/HCPCS: 36415; 83615; G0463 ==

== ENCOUNTER → 2020-10-23 | Outpatient (CLI) | payer SELFPAY | LOC: M LABSMTC 13:25 | PROVIDERS: ATTEND Pediatrics | DX: Z20.828 Contact with and (suspected) exposure to other viral communicable diseases (principal) ==

== ENCOUNTER → 2020-10-23 | Outpatient (CLI) | payer MEDICARE ==
--- NOTE | 2020-10-23 20:19 | REP ---
INDICATION: STAGING MELANOMA OF FLANK. Unintentional weight loss. COMPARISON: Comparison CT abdomen pelvis July 28, 2019.. TECHNIQUE: Forty-nine minutes following the intravenous injection of a 8.70 mCi dose of F-18 FDG, three-dimensional PET scintigraphy is acquired from the skull vertex to the toes. Triplanar noncontrast CT scanning is acquired through the same anatomic range for attenuation correction, and image registration with scan parameters optimized to minimize radiation exposure to the patient. PET scintigraphy and CT datasets were fused and displayed on a workstation with multiplanar and projection display capability. FINDINGS: Head and neck soft tissues are unremarkable. No adrian hypermetabolic foci is is seen. There is no abnormal hypermetabolic axillary, hilar, or mediastinal hypermetabolic adrian focus. No pulmonary parenchymal nodule is seen. No abnormal hypermetabolic pulmonary parenchymal uptake is observed. In the abdomen and pelvis, normal a patent, splenic, gastrointestinal, and genitourinary FDG accumulation is seen. No abnormal uptake is seen in the lower extremities or upper extremities on either side. No inguinal or pelvic hypermetabolic adrian focus is seen. There is normal variant skeletal muscle uptake in the left calf soft tissues and there is arthropathy associated uptake about a prosthetic knee joint on the right. No abnormal skeletal hypermetabolic uptake is seen. No abnormal dermal uptake focus is seen. IMPRESSION: Negative PET scintigraphy. No suspicious hypermetabolic uptake focus seen. <Electronically signed by Eric Enamorado > 10/23/202014
== END ==
LOC: M PLARAD 14:50
PROVIDERS: ATTEND Dermatology
DX: C43.59 Malignant melanoma of other part of trunk (principal)
CPT/HCPCS: 78816; A9552

== ENCOUNTER → 2021-05-10 | Outpatient (CLI) | payer MEDICARE ==
[2021-05-10 15:19] LABS: ALBUMIN 3.9 GM/DL (3.2-5.2); ALT/SGPT 33 U/L (12-78); BILIRUBIN,TOTAL 0.4 MG/DL (0.2-1.0); BLOOD UREA NITROGEN 11 MG/DL (7-18); CARBON DIOXIDE LEVEL 30 MEQ/L (21-32); CHLORIDE LEVEL 108 MEQ/L (98-107); CREATININE FOR GFR 0.94 MG/DL (0.70-1.30); GLOMERULAR FILTRATION RATE > 60.0 (>49); GLUCOSE, FASTING 114 MG/DL (70-100); POTASSIUM SERUM 4.4 MEQ/L (3.5-5.1); SODIUM LEVEL 141 MEQ/L (136-145); TOTAL PROTEIN 7.4 GM/DL (6.4-8.2)
== END ==
LOC: M LAB 14:08
PROVIDERS: ATTEND Dermatology
DX: B35.3 Tinea pedis (principal)
CPT/HCPCS: 36415; 80053; G0463

== ENCOUNTER → 2021-08-26 | Outpatient (CLI) | payer MEDICARE ==
[2021-08-26 12:19] LABS: BASO % 0.6 % (0.0-1.0); EOS # 0.1 10^3/uL (0.0-0.5); EOS % 2.1 % (0.0-3.0); HEMATOCRIT 50.1 % (42.0-52.0); HEMOGLOBIN 16.1 g/dl (13.5-17.5); LYMPH # 2.1 10^3/uL (1.5-5.0); LYMPH % 40.2 % (24.0-44.0); MEAN CORPUSCULAR HEMOGLOBIN 29.1 pg (27.0-33.0); MEAN CORPUSCULAR HGB CONC 32.1 g/dl (32.0-36.5); MEAN CORPUSCULAR VOLUME 90.6 fl (80.0-96.0); MONO # 0.5 10^3/uL (0.0-0.8); MONO % 8.8 % (2.0-8.0); NEUTROPHILS # 2.5 10^3/uL (1.5-8.5); NEUTROPHILS % 47.9 % (36.0-66.0); PLATELET COUNT, AUTOMATED 191 10^3/uL (150-450); RED BLOOD COUNT 5.53 10^6/uL (4.30-6.10); WHITE BLOOD COUNT 5.1 10^3/uL (4.0-10.0)
[2021-08-26 13:16] LABS: BLOOD UREA NITROGEN 10 MG/DL (7-18); CREATININE FOR GFR 1.02 MG/DL (0.70-1.30); GLUCOSE, FASTING 115 MG/DL (70-100)
[2021-08-26 13:17] LABS: ALBUMIN 3.8 GM/DL (3.2-5.2); ALT/SGPT 43 U/L (12-78); BILIRUBIN,TOTAL 0.6 MG/DL (0.2-1.0); CALCIUM LEVEL 9.1 MG/DL (8.8-10.2); CARBON DIOXIDE LEVEL 29 MEQ/L (21-32); CHLORIDE LEVEL 106 MEQ/L (98-107); CHOLESTEROL LEVEL 235 MG/DL (<200); CHOLESTEROL RISK RATIO 3.671 (<5); GLOMERULAR FILTRATION RATE > 60.0 (>49); HDL CHOLESTEROL 64 MG/DL (>40); LDL CHOLESTEROL 150 MG/DL (<100); NON-HDL-C 171 MG/DL; POTASSIUM SERUM 4.3 MEQ/L (3.5-5.1); PROSTATIC SPECIFIC AG MONITOR 1.11 NG/ML (< 4.00); SODIUM LEVEL 142 MEQ/L (136-145); TOTAL PROTEIN 7.3 GM/DL (6.4-8.2); TRIGLYCERIDES LEVEL 107 MG/DL (<150)
[2021-08-26 13:35] LABS: MALB URINE SIEMENS 14.1 MG/L; MAU/CREAT RATIO 7.1 MCG/MG (0.0-30.0)
[2021-08-26 15:03] LABS: HEMOGLOBIN A1c 6.3 %
== END ==
LOC: M WUC 09:38
PROVIDERS: ATTEND Family Medicine
DX: Z00.00 Encounter for general adult medical examination without abnormal findings (principal); M51.9 Unspecified thoracic, thoracolumbar and lumbosacral intervertebral disc disorder; E11.9 Type 2 diabetes mellitus without complications; I11.9 Hypertensive heart disease without heart failure; E78.49 Other hyperlipidemia; K21.00 Gastro-esophageal reflux disease with esophagitis, without bleeding; R97.20 Elevated prostate specific antigen [PSA]

== ENCOUNTER → 2021-12-17 | Outpatient (REF) | payer MEDICARE ==
[~2021-12-17] MED LIST changes: +LOSA50TA28 PO; -LOSA50TA88 PO
== END ==
LOC: M LAB REF 13:47
PROVIDERS: ATTEND Nurse Practitioner Family
DX: D23.5 Other benign neoplasm of skin of trunk (principal)

== ENCOUNTER → 2023-01-23 | Outpatient (REF) | payer MEDICARE | LOC: M SFHCDERM 16:35 | PROVIDERS: ATTEND Nurse Practitioner Family | DX: D22.5 Melanocytic nevi of trunk (principal); L57.0 Actinic keratosis; Z12.83 Encounter for screening for malignant neoplasm of skin; Z85.820 Personal history of malignant melanoma of skin; R23.8 Other skin changes; L85.3 Xerosis cutis; L82.1 Other seborrheic keratosis; L81.4 Other melanin hyperpigmentation | CPT/HCPCS: 11102; 17000; 88305; G0463 ==

== ENCOUNTER → 2023-05-19 | Outpatient (CLI) | payer MEDICARE ==
[2023-05-19 13:23] LABS: INR 1.85; PROTHROMBIN TIME 21.7 SECONDS (12.5-14.5)
== END ==
LOC: M LAB 12:05
DX: I48.0 Paroxysmal atrial fibrillation (principal); D68.61 Antiphospholipid syndrome

== ENCOUNTER → 2023-05-25 | Outpatient (CLI) | payer MEDICARE ==
[2023-05-25 16:30] LABS: INR 2.11
== END ==
LOC: M LAB 15:49
DX: I48.0 Paroxysmal atrial fibrillation (principal); D68.61 Antiphospholipid syndrome

== ENCOUNTER → 2023-07-28 | Outpatient (CLI) | payer MEDICARE ==
[2023-07-28 12:04] LABS: INR 1.84; PROTHROMBIN TIME 20.8 SECONDS (12.5-14.5)
== END ==
LOC: M LAB 11:04
PROVIDERS: ATTEND Internal Medicine Cardiovascular Disease
DX: I48.0 Paroxysmal atrial fibrillation (principal); D68.61 Antiphospholipid syndrome

== ENCOUNTER → 2023-08-04 | Outpatient (CLI) | payer MEDICARE ==
[2023-08-04 12:18] LABS: INR 2.18; PROTHROMBIN TIME 23.7 SECONDS (12.5-14.5)
== END ==
LOC: M LAB 11:37
PROVIDERS: ATTEND Internal Medicine Cardiovascular Disease
DX: I48.0 Paroxysmal atrial fibrillation (principal); D68.61 Antiphospholipid syndrome